=== PATIENT | female | born 2000 | race Caucasian/White ===

== ENCOUNTER 2020-05-16 10:03 | Outpatient (CLI) | payer OTHER, SELFPAY ==
--- NOTE | ~2020-05-16 | XR_ITS ---
EXAMINATION: XR lumbar spine 2-3V DATE: 05/16/2020 10:34 INDICATION: Back pain TECHNIQUE: Anteroposterior and lateral views of the lumbar spine, and cone-down lateral view of the l umbosacral junction were obtained. COMPARISON: None. FINDINGS: There is no fracture, dislocation, or subluxation. The vertebral body heights, alignment, a nd intervertebral disc spaces are normal. The paravertebral soft tissues are unremarkable. There is a moderate volume of colonic stool. IMPRESSION: 1. No acute osseous abnormality. Reviewed, dictated and finalized at location A. OGRAPHERS PRINTER
--- NOTE | ~2020-05-16 | US_ITS ---
EXAMINATION: US retroperitoneal comp DATE: 05/16/2020 10:51 INDICATION: Hematuria TECHNIQUE: Multiple ultrasound grayscale images of the kidneys were obtained. COMPARISON: None. FINDINGS: The right kidney measures 9.8 x 3.8 x 5.0 cm. The left kidney measures 10.8 x 4.8 x 3.7 cm. The kidne ys demonstrate normal echogenicity. There is no hydronephrosis in either kidney. No stones identifie d. The bladder is normal. IMPRESSION: 1. Normal kidneys without hydronephrosis. Reviewed, dictated and finalized at location A. TER BACKER
[2020-05-16 10:18] LABS: Basophils Absolute Auto 0.02 K/mm3 (0.00-0.10); Basophils Percent Auto 0.2 % (0.0-1.0); Eosinophils Percent Auto 2.3 % (1.0-6.0); Hematocrit 44.7 % (35.0-49.0); Hemoglobin 14.6 g/dL (12.0-15.0); Immature Granulocyte Absolute 0.04 K/mm3 (0.00-0.00); Immature Granulocyte Percent A 0.5 % (0.0-0.0); Lymphocytes Absolute Auto 2.64 K/mm3 (1.10-4.50); Lymphocytes Percent Auto 30.4 % (18.0-42.0); Mean Corpuscular HGB Conc 32.7 g/dL (32.0-36.0); Mean Corpuscular Hemoglobin 29.9 pg (27.0-31.0); Mean Corpuscular Volume 91.4 fL (78.0-102.0); Mean Platelet Volume 9.1 fl (9.2-11.8); Monocytes Absolute Auto 0.61 K/mm3 (0.10-0.90); Neutrophils Absolute Auto 5.2 K/mm3 (1.7-7.2); Neutrophils Percent Auto 59.6 % (50.0-70.0); Platelet Count Result 367 K/mm3 (150-420); Red Blood Count 4.89 M/mm3 (4.20-5.40); Red Cell Distribution Width 12.2 % (11.6-14.4); White Blood Count 8.7 K/mm3 (4.8-10.8)
[2020-05-16 10:56] LABS: Alanine Aminotransferase 30 U/L (14-59); Albumin Level 4.4 g/dL (3.4-5.0); Alkaline Phosphatase 83 U/L (50-130); Anion Gap 11 mmol/L (8-16); Aspartate Amino Transferase 15 U/L (15-37); Bilirubin,Total 0.3 mg/dL (0.00-1.00); Blood Urea Nitrogen 14 mg/dL (7-18); Calcium 9.3 mg/dL (8.5-10.1); Carbon Dioxide 26 mmol/L (21-32); Chloride 105 mmol/L (98-108); Estimated Glomerular Filt Rate > 60; Glucose 75 mg/dL (70-99); Osmolality Calculated 293 mOsm/kg (285-295); Sodium 142 mmol/L (136-145); Total Protein 7.6 g/dL (6.4-8.2)
[2020-05-16 10:57] LABS: CRP < 0.2 mg/dL (0.0-0.9)
[2020-05-16 13:59] LABS: Beta HCG Quantitative < 1.00 mIU/mL (0-6)
== END 2020-05-16 10:04 | disposition home or self-care (01) ==
PROVIDERS: PCP Internal Medicine; Visit Provider Internal Medicine
DX: N76.0 Acute vaginitis (principal); R31.9 Hematuria, unspecified; M54.9 Dorsalgia, unspecified
CPT/HCPCS: 36415; 72100; 76770; 80053; 84702; 85025; 86140

== ENCOUNTER 2020-11-13 08:46 | Outpatient (CLI) | payer OTHER, SELFPAY ==
[2020-11-13 10:20] LABS: Beta HCG Quantitative < 2.39 mIU/ML
== END 2020-11-13 08:47 | disposition home or self-care (01) ==
PROVIDERS: PCP Internal Medicine; Visit Provider Obstetrics & Gynecology
DX: N92.6 Irregular menstruation, unspecified (principal)
CPT/HCPCS: 36415; 84702

== ENCOUNTER 2020-12-19 13:49 | Outpatient (CLI) | payer OTHER, SELFPAY ==
[2020-12-22 11:23] LABS: TB Skin Test Erythema 0 mm; TB Skin Test Induration 0 mm (0-10); TB Skin Test Interpretation Negative (Negative); TB Skin Test Site Left Arm
== END 2020-12-19 13:50 | disposition home or self-care (01) ==
LOC: CHSLAB 13:51
PROVIDERS: PCP Internal Medicine; Visit Provider Nurse Practitioner Family
DX: Z00.00 Encounter for general adult medical examination without abnormal findings (principal)
CPT/HCPCS: 36415; 86580

== ENCOUNTER 2021-04-08 12:05 | Outpatient (CLI) | payer OTHER, SELFPAY ==
[2021-04-08 13:50] LABS: SARS-CoV-2 RNA PCR Negative (Negative)
== END 2021-04-08 12:06 | disposition home or self-care (01) ==
LOC: CHSLAB 12:08
PROVIDERS: PCP Internal Medicine; Visit Provider Internal Medicine
DX: Z20.822 Contact with and (suspected) exposure to COVID-19 (principal)
CPT/HCPCS: C9803; U0003; U0005

== ENCOUNTER 2021-06-10 11:46 | Outpatient (CLI) | payer OTHER, SELFPAY ==
[2021-06-10 14:14] LABS: SARS-CoV-2 RNA PCR Negative (Negative)
== END 2021-06-10 11:47 | disposition home or self-care (01) ==
LOC: CHSLAB 11:48
PROVIDERS: PCP Internal Medicine; Visit Provider Internal Medicine
DX: R09.89 Other specified symptoms and signs involving the circulatory and respiratory systems (principal); R05.9 Cough, unspecified; Z20.822 Contact with and (suspected) exposure to COVID-19
CPT/HCPCS: C9803; U0003; U0005

== ENCOUNTER 2021-08-28 16:19 | Emergency (ER) | payer OTHER, SELFPAY ==
--- NOTE | ~2021-08-28 | CT_ITS ---
EXAMINATION: CT abdomen pelvis w con EXAM DATE: 08/28/2021 18:18 INDICATION: Central abd pain with n/v x 1 day. TECHNIQUE: Spiral CT of the abdomen and pelvis was performed following intravenous injection of 100 m L Omnipaque 350. Axial, coronal and sagittal images of the abdomen and pelvis were reviewed. The do se-length product (DLP) for this examination was 290.91 mGy-cm. The exposure was tailored according to patient size (auto mA exposure control), and iterative reconstruction (ASIR) was used as additiona l dose reduction technique. There is no prior study for comparison. FINDINGS: The liver, spleen, adrenal glands and pancreas are unremarkable. Gallbladder is unremarkab le. No biliary obstruction. Portal and splenic veins are patent. Kidneys enhance symmetrically. T here is no hydronephrosis. The uterus is anteverted and morphologically normal. The bladder is un remarkable. There is no retroperitoneal or pelvic lymphadenopathy. The appendix is normal. Several loops of jejunum which are mildly distended with air-fluid levels, b ut no wall thickening or pneumatosis. Consider gastroenteritis. No transition point. There is expect ed amount of colonic stool. No free intraperitoneal gas. The heart is normal in size. There are no pericardial or pleural effusions. The lung bases are unremarkable. There are no osteoblastic or osteolytic lesions identified. IMPRESSION: Mildly dilated jejunum, consider gastroenteritis given history provided. Reviewed, dictated and finalized at location G. COVERER IMPRESSION: Mildly dilated jejunum, consider gastroenteritis given history prov ided.
[2021-08-28 16:45] VITALS: BP 132/85; PULSE 99; RESP 20; TEMP 36.9; O2SAT 99
[2021-08-28] MEDS: SODIUM CHLORIDE 0.9% IV 1,000 ML 999 ML IV CONT (16:50)
--- NOTE | 2021-08-28 16:56 | ED.NAVMDI ---
HPI - Nausea/Vomiting/Diarrhea General Chief complaint: Nausea/Vomiting/Diarrhea Stated complaint: stomach pain, vomiting Source: patient Mode of arrival: ambulatory Limitations: no limitations History of Present Illness HPI Narrative: this is a 21-year-old female with no past medical history presents with some episodes of nausea and vomiting with abdominal discomfort and pain she rates it about a 7/10 with no dysuria no hematuria no fever chills nausea vomiting abdominal pain started about 2 to 3 hours ago. There is no shortness of breath no fever chills no chest pain or pressure no flank pain patient is not vaccinated for COVID. MD elicited complaint: nausea, vomiting and abdominal pain Onset (ago): hour(s) Description of vomiting: watery Associated nausea: Yes Associated abdominal pain: Yes Location of pain: diffuse Radiation: periumbilical Pain consistency: constant Severity: moderate Pain scale (0-10): 7 Quality: aching Related Data Home Medications Medication Instructions Recorded Confirmed drospirenone-ethinyl estradiol 1 tablet PO DAILY 08/28/21 08/28/21 Allergies Allergy/AdvReac Type Severity Reaction Status Date / Time No Known Allergies Allergy Verified 08/28/21 17:19 Review of Systems Review of Systems: All systems reviewed & are unremarkable except as noted in HPI and below PMFSH Past Medical History Medical History Patient denies medical problems Exam Const: General: no acute distress and alert Orientation/consciousness: patient oriented x3 HENMT: Head: normal to inspection Eyes: Pupils: Equal, round and reactive pupils present EOM: EOMs intact bilaterally Direct Ophthalmoscopy: no photophobia Neck: Neck: normal visual inspection, no lymphadenopathy and no meningeal signs Chest: Chest palpation & inspection: normal inspection of the chest Resp: Effort & Inspection: normal respiratory effort Auscultation: clear to auscultation bilaterally Cardio: Rate: regular rate Rhythm: regular rhythm GI: GI Palp: Yes Soft to palpation and Yes Tenderness to palpation present (GI) ( diffuse tenderness localizing to the periumbilical area) Percussion: Yes normal to percussion : General: Yes no CVA tenderness Back/Spine/Pelvis: Back: no CVA tenderness Skin: General skin exam: normal color Rashes: no rashes Neuro: General: patient oriented x3 and moves all extremities Extrem: General: normal to inspection and no pedal edema Psych: Mental Status: mental status grossly normal Affect: normal affect Attitude: cooperative Course Course Emergency Course: blood work and scan performed and reviewed with patient, was given IV Zofran started on IV fluids and IV Toradol. Labs patient is well as CT scan of the abdomen [place] [id number] will start antibiotic and will send the head Vital Signs Vital signs: Vital Signs Temperature 36.9 C 08/28/21 16:45 Pulse Rate 99 08/28/21 16:45 Respiratory Rate 20 08/28/21 16:45 Blood Pressure 132/85 08/28/21 16:45 Pulse Oximetry 99 08/28/21 16:45 Temperature 36.9 C 08/28/21 16:45 Pulse Rate 99 08/28/21 16:45 Respiratory Rate 20 08/28/21 16:45 Blood Pressure 132/85 08/28/21 16:45 Pulse Oximetry 99 08/28/21 16:45 MDM - Nausea/Vomiting/Diarrhea Lab Data Result diagrams: 08/28/21 17:05 08/28/21 17:05 Labs: Lab Results 08/28/21 08/28/21 08/28/21 Range/Units 17:05 17:05 17:05 WBC 20.1 H* (4.8-10.8) K/mm3 RBC 4.75 (4.20-5.40) M/mm3 Hgb 14.4 (12.0-15.0) g/dL Hct 42.9 (35.0-49.0) % MCV 90.3 (78.0-102.0) fL MCH 30.3 (27.0-31.0) pg MCHC 33.6 (32.0-36.0) g/dL RDW 12.7 (11.6-14.4) % Plt Count 369 (150-420) K/mm3 MPV 9.2 (9.2-11.8) fl Immature Gran % (Auto) Not Reportable Neut % (Auto) Not Reportable Lymph % (Auto) Not Reportable [place] % (Auto
[2021-08-28] MEDS: ONDANSETRON INJ 4 MG/2 ML VIAL IV PUSH (17:00)
[2021-08-28 17:14] LABS: Hematocrit 42.9 % (35.0-49.0); Hemoglobin 14.4 g/dL (12.0-15.0); Mean Corpuscular HGB Conc 33.6 g/dL (32.0-36.0); Mean Corpuscular Hemoglobin 30.3 pg (27.0-31.0); Mean Corpuscular Volume 90.3 fL (78.0-102.0); Mean Platelet Volume 9.2 fl (9.2-11.8); Platelet Count Result 369 K/mm3 (150-420); Red Blood Count 4.75 M/mm3 (4.20-5.40); Red Cell Distribution Width 12.7 % (11.6-14.4)
[2021-08-28 17:20] LABS: White Blood Count 20.1 K/mm3 (4.8-10.8)
[2021-08-28] MEDS: KETOROLAC 30 MG/ML VIAL (*BKC) IV PUSH (17:24)
[2021-08-28 17:26] LABS: SARS-CoV-2 Ag Negative (Negative)
[2021-08-28 17:27] LABS: Partial Thromboplastin Time 27.7 SEC (23.90-30.70); Prothrombin Time 10.3 Seconds (9.50-12.10)
[2021-08-28 17:28] LABS: Alanine Aminotransferase 23 U/L (14-59); Albumin Level 3.4 g/dL (3.4-5.0); Alkaline Phosphatase 75 U/L (46-116); Anion Gap 13 mmol/L (8-16); Aspartate Amino Transferase 15 U/L (15-37); Bilirubin,Total 0.3 mg/dL (0.00-1.00); Blood Urea Nitrogen 12 mg/dL (7-18); Calcium 8.5 mg/dL (8.5-10.1); Carbon Dioxide 23 mmol/L (21-32); Chloride 103 mmol/L (98-108); Estimated Glomerular Filt Rate > 60; Glucose 88 mg/dL (70-99); Lipase 68 U/L (73-393); Osmolality Calculated 286 mOsm/kg (285-295); Potassium 3.5 mmol/L (3.5-5.1); Sodium 139 mmol/L (136-145); Total Protein 7.3 g/dL (6.4-8.2)
[2021-08-28 17:31] LABS: Lactic Acid Reflex 1.1 mmol/L (0.4-2.0)
[2021-08-28 17:35] LABS: Platelet Estimate Adequate (Adequate)
[2021-08-28 17:36] LABS: Band Neutrophils Percent 0 % (0-6); Basophils Percent Manual 0 % (0-1); Eosinophils Percent Manual 0 % (1-6); Lymphocytes Percent Manual 7 % (18-44); Monocytes Percent Manual 4 % (3-9); Neutrophils Absolute Manual 17.88 K/mm3 (1.7-7.2); Neutrophils Percent Manual 89 % (46-73); Total Cells Counted 100
[2021-08-28 17:54] LABS: Add Urine Microscopic? YES; Appearance Urine Clear (Clear); Bilirubin Urine Negative (Negative); Blood Urine Negative (Negative); Color Urine Light Yellow (Yellow); Glucose Urine UA Negative (Negative); Ketones Urine 2+ (Negative); Leukocyte Esterase Ur Negative (Negative); Nitrate Urine Negative (Negative); Protein Urine Negative (Negative); Specific Grav Ur >= 1.030 (1.010-1.020); Urobilinogen Urine 0.2 mg/dL (0.2-1.0); pH Urine 5.5 (5.0-8.0)
[2021-08-28 17:59] LABS: Bacteria Urine 1+ /hpf; Mucus Urine Rare /lpf; Pregnancy On Board Control Positive; RBC Urine 0-2 /hpf (0-2); Squamous Epithelial Cell Urine Few /hpf (Few); Urine Pregnancy Test Negative; WBC Urine 0-3 /hpf (0-3)
[2021-08-28 18:30] VITALS: BP 123/74; PULSE 81; RESP 20; TEMP 37.1; O2SAT 98
== END 2021-08-28 18:49 | disposition home or self-care (01) ==
PROVIDERS: Emergency Provider Emergency Medicine; PCP Internal Medicine
DX: K52.9 Noninfective gastroenteritis and colitis, unspecified (principal); Z20.822 Contact with and (suspected) exposure to COVID-19
CPT/HCPCS: 36415; 74177; 80053; 81001; 81025; 83605; 83690; 85025; 85610; 85730; 87426; 96361; 96374; 96375; 99284; C9803; J1885; J2405; J7030; Q9967

== ENCOUNTER 2021-12-05 16:16 | Outpatient (CLI) | payer OTHER, SELFPAY ==
[2021-12-05 16:55] LABS: Basophils Absolute Auto 0.02 K/mm3 (0.00-0.10); Basophils Percent Auto 0.2 % (0.0-1.0); Eosinophils Absolute Auto 0.14 K/mm3 (0.02-0.50); Eosinophils Percent Auto 1.6 % (1.0-6.0); Hematocrit 41.2 % (35.0-49.0); Hemoglobin 13.8 g/dL (12.0-15.0); Immature Granulocyte Absolute 0.03 K/mm3 (0.00-0.00); Immature Granulocyte Percent A 0.4 % (0.0-0.0); Lymphocytes Absolute Auto 2.91 K/mm3 (1.10-4.50); Lymphocytes Percent Auto 34.3 % (18.0-42.0); Mean Corpuscular HGB Conc 33.5 g/dL (32.0-36.0); Mean Corpuscular Hemoglobin 30.3 pg (27.0-31.0); Mean Corpuscular Volume 90.4 fL (78.0-102.0); Mean Platelet Volume 9.4 fl (9.2-11.8); Monocytes Absolute Auto 0.58 K/mm3 (0.10-0.90); Monocytes Percent Auto 6.8 % (2.0-11.0); Neutrophils Absolute Auto 4.8 K/mm3 (1.7-7.2); Neutrophils Percent Auto 56.7 % (50.0-70.0); Platelet Count Result 377 K/mm3 (150-420); Red Blood Count 4.56 M/mm3 (4.20-5.40); Red Cell Distribution Width 12.4 % (11.6-14.4); White Blood Count 8.5 K/mm3 (4.8-10.8)
[2021-12-05 17:00] LABS: SPREG INTERNAL CONTROL Positive; Serum Qual hCG Negative
[2021-12-05 17:01] LABS: Alanine Aminotransferase 24 U/L (14-59); Albumin Level 3.5 g/dL (3.4-5.0); Alkaline Phosphatase 77 U/L (46-116); Amylase 24 U/L (25-115); Anion Gap 5 mmol/L (8-16); Aspartate Amino Transferase 25 U/L (15-37); Bilirubin,Total 0.3 mg/dL (0.00-1.00); Blood Urea Nitrogen 14 mg/dL (7-18); Calcium 8.8 mg/dL (8.5-10.1); Carbon Dioxide 27 mmol/L (21-32); Chloride 105 mmol/L (98-108); Estimated Glomerular Filt Rate > 60; Glucose 122 mg/dL (70-99); Lipase 96 U/L (73-393); Osmolality Calculated 285 mOsm/kg (285-295); Potassium 3.9 mmol/L (3.5-5.1); Sodium 137 mmol/L (136-145); Total Protein 7.4 g/dL (6.4-8.2)
[2021-12-05 17:03] LABS: Amphetamine Screen Urine Negative (Negative); Barbiturate Screen Urine Negative (Negative); Benzodiazepines Screen Urine Negative (Negative); Cannabinoid Screen Urine Negative (Negative); Cocaine Screen Urine Negative (Negative); Methadone Screen Urine Negative (Negative); Opiate Screen Urine Negative (Negative); Phencyclidine Screen Urine Negative (Negative)
== END 2021-12-05 16:17 | disposition home or self-care (01) ==
LOC: CHSLAB 16:18
PROVIDERS: PCP Internal Medicine; Visit Provider Internal Medicine
DX: R10.9 Unspecified abdominal pain (principal); R11.0 Nausea
CPT/HCPCS: 36415; 80053; 80307; 82150; 83690; 84703; 85025

== ENCOUNTER 2022-05-27 14:37 | Outpatient (CLI) | payer OTHER, SELFPAY ==
[2022-05-27 16:11] LABS: HIV 1/2 Ab P24 Ag Result Negative (Negative)
[2022-05-27 18:12] LABS: Hepatitis B Surface Antigen Negative (Negative)
[2022-05-27 18:18] LABS: HAV RESULT Negative (Negative); Hepatitis B Core IgM Result Negative (Negative)
[2022-05-27 18:29] LABS: Hepatitis C Virus Antibody Negative (Negative)
[2022-05-28 13:35] LABS: Rapid Plasma Reagin Non-Reactive (NonReactive)
== END 2022-05-27 14:38 | disposition home or self-care (01) ==
LOC: ANHLAB 14:39
PROVIDERS: PCP Internal Medicine; Visit Provider Student in an Organized Health Care Education/Training Program
DX: Z20.2 Contact with and (suspected) exposure to infections with a predominantly sexual mode of transmission (principal)
CPT/HCPCS: 36415; 80074; 86592; 86703; G0432

== ENCOUNTER 2022-08-19 11:45 | Outpatient (CLI) | payer OTHER, SELFPAY ==
[2022-08-19 13:36] LABS: HIV 1/2 Ab P24 Ag Result Negative (Negative)
[2022-08-19 13:47] LABS: Hepatitis B Surface Antigen Negative (Negative)
[2022-08-19 13:52] LABS: HAV RESULT Negative (Negative)
[2022-08-19 14:04] LABS: Hepatitis C Virus Antibody Negative (Negative)
[2022-08-20 16:03] LABS: Rapid Plasma Reagin Non-Reactive (NonReactive)
== END 2022-08-19 11:46 | disposition home or self-care (01) ==
LOC: ANHLAB 11:46
PROVIDERS: PCP Internal Medicine; Visit Provider Student in an Organized Health Care Education/Training Program
DX: A64 Unspecified sexually transmitted disease (principal)
CPT/HCPCS: 36415; 86592; 86703; 86709; 86803; 87340; G0432

== ENCOUNTER 2022-09-23 15:59 | Outpatient (CLI) | payer OTHER, SELFPAY ==
[2022-09-23 16:59] LABS: Beta HCG Quantitative < 2.39 mIU/ML
== END 2022-09-23 16:00 | disposition home or self-care (01) ==
LOC: ANHLAB 16:00
PROVIDERS: PCP Internal Medicine; Visit Provider Student in an Organized Health Care Education/Training Program
DX: N92.6 Irregular menstruation, unspecified (principal)
CPT/HCPCS: 36415; 84702

== ENCOUNTER 2023-09-29 19:57 | Emergency (ER) | payer OTHER, SELFPAY ==
--- NOTE | ~2023-09-29 | US_ITS ---
EXAMINATION: US OB <=14 wk fetus w TV DATE: 09/29/2023 22:25 INDICATION: Vaginal bleeding during first trimester TECHNIQUE: Real-time pelvic transabdominal and transvaginal ultrasound was performed. COMPARISON: None. FINDINGS: The uterus measures 6.6 x 3.3 x 4.1 cm. The endometrial thickness measures 10 mm. No intrau terine gestational sac is identified. The right ovary measures 2.4 x 2.4 x 3 cm. The left ovary measu res 2 x 1.5 x 2 cm. There is normal vascular flow in the ovaries. There is no free fluid in the pelvi s. IMPRESSION: 1. of unknown location. Although no intrauterine gestational sac is seen, this may be due t o early gestation. If the patient is clinically stable, recommend followup with serial beta-hCG and u ltrasound. Reviewed, dictated and finalized at location F. IMPRESSION: 1. of unknown location. Although no intrauterine gestational sac is s een, this may be due to early gestation. If the patient is clinically stable, r ecommend followup with serial beta-hCG and ultrasound.
[2023-09-29 20:21] VITALS: BP 112/76; PULSE 71; RESP 14; TEMP 36.2; O2SAT 100
[2023-09-29 20:36] LABS: Basophils Percent Auto 0.2 % (0.2-1.2); Eosinophils Absolute Auto 0.2 K/mm3 (0-0.3); Eosinophils Percent Auto 1.6 % (0-4.4); Hematocrit 45.3 % (37.0-47.0); Hemoglobin 15.1 g/dL (12.0-15.0); Immature Granulocyte Absolute 0.06 K/mm3 (0.00-0.031); Immature Granulocyte Percent A 0.5 % (0-0.5); Lymphocytes Absolute Auto 3.13 K/mm3 (0.9-3.2); Lymphocytes Percent Auto 23.9 % (18.3-44.2); Mean Corpuscular HGB Conc 33.3 g/dl (32-36); Mean Corpuscular Hemoglobin 30.1 pg (26-34); Mean Corpuscular Volume 90.4 fl (80-100); Mean Platelet Volume 9.1 fl (7.4-10.4); Monocytes Absolute Auto 0.6 K/mm3 (0.1-0.6); Monocytes Percent Auto 4.9 % (2.6-8.5); Neutrophils Absolute Auto 9.1 K/mm3 (1.3-6.7); Neutrophils Percent Auto 68.9 % (45.5-73.1); Platelet Count Result 394 k/mm3 (150-375); Red Blood Count 5.01 M/mm3 (4.2-5.4); Red Cell Distribution Width 12.3 % (11.5-14.5); White Blood Count 13.1 K/mm3 (4.5-10.0)
[2023-09-29 20:48] LABS: INR 0.9; Partial Thromboplastin Time 26.3 Seconds (22.3-36.8); Prothrombin Time 12.8 Seconds (11.1-14.7)
[2023-09-29 20:50] LABS: Alanine Aminotransferase 16 U/L (6-35); Albumin Level 4.7 g/dL (3.5-5.1); Alkaline Phosphatase 67 U/L (38-126); Anion Gap 6 mmol/L (8-16); Aspartate Amino Transferase 24 U/L (14-36); Bilirubin,Total 0.3 mg/dL (0.2-1.3); Blood Urea Nitrogen 15 mg/dL (7-17); Calcium 9.7 mg/dL (8.4-10.2); Carbon Dioxide 25 mmol/L (22-30); Chloride 106 mmol/L (98-107); Estimated CRCL calculation 97 ml/min; Estimated Glomerular Filt Rate > 60; Glucose 93 mg/dL (65-110); Sodium 137 mmol/L (137-145)
[2023-09-29 22:00] VITALS: BP 110/78; PULSE 72; RESP 15; O2SAT 99
--- NOTE | 2023-09-29 23:04 | ED.FEMALEGU ---
HPI - Female Genitourinary General Chief complaint: Vaginal Bleeding Stated complaint: , vaginal bleeding Time Seen by Provider: 09/29/23 20:55 History of Present Illness HPI Narrative: 23-year-old female, , LMP 08/21/2023 presents to the emergency department for vaginal bleeding in . Patient states she believes she is about 6 weeks and began bleeding around 1800 tonight. States she has not had to change her pad or tampon since. She is reporting some lower abdominal cramping. Denies nausea or vomiting, dysuria or hematuria, fever, vaginal discharge or concern for STDs. States she was tested for STDs 2 weeks ago by her PCP which were negative and does not desire testing today. Related Data Allergies Allergy/AdvReac Type Severity Reaction Status Date / Time No Known Allergies Allergy Verified 09/29/23 21:03 Review of Systems Review of Systems: CONSTITUTIONAL: Denies fever, chills, or sweats. EYES: Denies visual changes, redness, or discharge. ENT: Denies rhinorrhea, congestion, sore throat, or otalgia. CARDIOVASCULAR: Denies chest pain, palpitations, or edema. RESPIRATORY: Denies cough or dyspnea. GASTROINTESTINAL: See HPI GENITOURINARY: Denies dysuria or hematuria. SKIN: Denies rash or itching. MUSCULOSKELETAL: Denies back pain, joint pain, or myalgia. NEUROLOGIC: Denies headache, numbness, or weakness. PSYCHIATRIC: Denies anxiety or depression. FORMERLY [facility] Past Medical History Medical History Encounter for IUD insertion 11/14/20 Mirena insertion Encounter for IUD removal 03/13/21 Mirena removal Menstrual periods, abnormal Nexplanon insertion (03/12/20) Nexplanon removal (06/26/20) Patient denies medical problems Sexually transmissible disease Social History Social History Smoking status: Current every day smoker Tobacco type: e-cigarettes/vaping Alcohol intake: current Alcohol use details: occasional Substance use: never Living arrangements: with family Occupation/Education: occupation Additional occupation/education comments: [employer] Gender identity (if verbalized by the patient): Female Sexual Orientation (if Verbalized by the Patient): Straight or Heterosexual Exam Narrative: GENERAL: Well-appearing, well-nourished, and in no acute distress. HEAD: Normocephalic, atraumatic. EYES: PERRLA and EOMI. ENT: Nares clear, no rhinorrhea or epistaxis. Mucous membranes moist. NECK: Supple. CHEST: Clear to auscultation. No respiratory distress. HEART: Regular rate and rhythm. No murmur heard. Normal peripheral pulses. ABDOMEN: Soft, nontender, nondistended, normal active bowel sounds. No guarding, rebound or rigidity. No CVA tenderness. : Moderate amount of blood in the cervical canal with no clots or tissue. Cervical os is closed. No discharge, cervical motion tenderness, adnexal masses or tenderness. EXTREMITIES: Normal range of motion. No edema. SKIN: Warm, dry, no rash. NEURO: No focal deficits. Alert and oriented x3 Course Vital Signs Vital signs: Vital Signs Temperature 97.2 F L 09/29/23 20:21 Pulse Rate 71 09/29/23 20:21 Respiratory Rate 14 09/29/23 20:21 Blood Pressure 112/76 09/29/23 20:21 Pulse Oximetry 100 09/29/23 20:21 Oxygen Delivery Room Air 09/29/23 20:21 Temperature 97.2 F L 09/29/23 20:21 Pulse Rate 71 09/29/23 20:21 Respiratory Rate 14 09/29/23 20:21 Blood Pressure 112/76 09/29/23 20:21 Pulse Oximetry 100 09/29/23 20:21 Oxygen Delivery Room Air 09/29/23 20:21 MDM - Female Genitourinary MDM Narrative Medical decision making narrative: 23-year-old female, , who believes she is 6 weeks presents to the emergency department for vaginal bleeding that started today. See HPI for further history. Vitals stable. Patient is well-appearing and nonto
== END 2023-09-29 23:18 | disposition home or self-care (01) ==
PROVIDERS: Emergency Medicine; Emergency Provider Physician Assistant; PCP Internal Medicine
DX: O20.9 Hemorrhage in early pregnancy, unspecified (principal); F17.290 Nicotine dependence, other tobacco product, uncomplicated; Z3A.01 Less than 8 weeks gestation of pregnancy
CPT/HCPCS: 36415; 76801; 76817; 80053; 84702; 85025; 85461; 85610; 85730; 86850; 86900; 86901; 99284

== ENCOUNTER 2024-03-04 11:45 | Observation (INO) | payer OTHER, SELFPAY ==
[2024-03-04 13:09] VITALS: BP 114/70; PULSE 65
[2024-03-04 13:22] LABS: Add Urine Microscopic? YES; Appearance Urine Cloudy (Clear); Bacteria Urine 1+ /hpf; Bilirubin Urine Negative (Negative); Blood Urine 3+ (Negative); Calcium Oxalate Crystals Urine Present /hpf; Color Urine Yellow (Yellow); Glucose Urine UA Negative (Negative); Ketones Urine Trace mg/dL (Negative); Leukocyte Esterase Ur 1+ LEU/UL (Negative); Nitrate Urine Negative (Negative); Non Pathogenic Casts 0-2; Protein Urine Trace mg/dL (Negative); RBC Urine >100 /hpf (0-2); Specific Grav Ur 1.022 (1.001-1.035); Squamous Epithelial Cell Urine Occasional /hpf (Few); WBC Urine 51-100 /hpf (0-3)
[2024-03-04] MEDS: cefTRIAXone 1 GM VIAL 0.5 GM IM (13:59)
[2024-03-04] MEDS: LIDOCAINE HCL 1% LOCAL INJ 10 ML VIAL INFILTRATE (14:02)
--- NOTE | 2024-03-04 15:06 | PC.NURSE ---
1350--No irritability noted in past 90 min of tracing. Pt states she no longer feels cramping.
--- NOTE | 2024-03-04 15:23 | PM.OBTRLD ---
OB - Triage/Final Diagnosis Visit Information Date of evaluation: 03/04/24 Reason for evaluation: other (Urinary tract infection) Comments/Additional reasons for admission: I have assessed the risk for this patient, Estephania Dan, and determined that she would benefit from observation care. Evaluation Laboratory results: Laboratory Tests 03/04/24 12:09 Urine Color Yellow Urine Appearance Cloudy H Urine pH 6.0 Ur Specific [place] 1.022 Urine Protein Trace Urine Glucose (UA) Negative Urine Ketones Trace H Ur Blood (Man) 3+ H Urine Nitrate Negative Urine Bilirubin Negative Urine Urobilinogen 1.0 Leukocyte Esterase Rfl 1+ H Urine RBC >100 H Urine WBC 51-100 H Ur Squamous Epith Cells Occasional Calcium Oxalate Crystal Present Urine Bacteria 1+ H Urine Casts 0-2 Vital signs: Vital Signs - 24 hr 03/04/24 13:09 Pulse Rate 65 Blood Pressure 114/70
== END 2024-03-04 14:10 | disposition home or self-care (01) ==
PROVIDERS: Admitting Provider Obstetrics & Gynecology; PCP Internal Medicine; Visit Provider Obstetrics & Gynecology
DX: O23.40 Unspecified infection of urinary tract in pregnancy, unspecified trimester (principal); N39.0 Urinary tract infection, site not specified
CPT/HCPCS: 81001; 87086; 96372; G0378; G0379; J0696

== ENCOUNTER 2024-06-01 08:49 | Observation (INO) | payer OTHER, SELFPAY ==
[2024-06-01 09:07] VITALS: BP 126/70; PULSE 72
[2024-06-01 09:16] VITALS: BP 77/54; PULSE 81
--- NOTE | 2024-06-01 09:25 | OBADM ---
This patient, Estephania Dan, admitted to the OB room OB Post 116 for observation. Patient/family oriented to hospital policies and general routines including ID bracelet, bed and alarms, visiting hours, pain management, procedures, bathroom and other care routines, personal items, smoking policy, room service/diet, and visiting hours. Patient/Family are encouraged to report perceived risks to care and to ask questions if they do not understand what they are told or what they should do.
[2024-06-01 09:33] VITALS: BMI 30.4
[2024-06-01 10:29] LABS: Add Urine Microscopic? YES; Appearance Urine Cloudy (Clear); Bacteria Urine 4+ /hpf; Bilirubin Urine Negative (Negative); Blood Urine 1+ (Negative); Color Urine Dark Yellow (Yellow); Glucose Urine UA Negative (Negative); Ketones Urine Trace mg/dL (Negative); Leukocyte Esterase Ur Trace LEU/UL (Negative); Need Manual Microscopic Reviewed; Nitrate Urine Positive (Negative); Non Pathogenic Casts 0-2; Protein Urine 3+ mg/dL (Negative); RBC Urine 21-50 /hpf (0-2); Specific Grav Ur 1.017 (1.001-1.035); Squamous Epithelial Cell Urine Occasional /hpf (Few); WBC Urine 21-50 /hpf (0-3); pH Urine 6.5 (5.0-9.0)
[2024-06-01 10:32] LABS: Amorphous Sediment Urine Few
[2024-06-01] MEDS: cefTRIAXone 250 MG VIAL IM (11:10)
[2024-06-01] MEDS: LIDOCAINE HCL 1% LOCAL INJ 10 ML VIAL XX (11:10)
--- NOTE | 2024-06-02 08:18 | PM.OBTRLD ---
OB - Triage/Final Diagnosis Visit Information Date of evaluation: 06/01/24 Reason for evaluation: decreased movement and other (uti) Comments/Additional reasons for admission: I have assessed the risk for this patient, Estephania Dan, and determined that she would benefit from observation care. Evaluation Laboratory results: Laboratory Tests 06/01/24 09:22 Urine Color Dark yellow Urine Appearance Cloudy H Urine pH 6.5 Ur Specific [place] 1.017 Urine Protein 3+ H Urine Glucose (UA) Negative Urine Ketones Trace H Ur Blood (Man) 1+ H Urine Nitrate Positive Urine Bilirubin Negative Urine Urobilinogen 1.0 Ur Leukocyte Esterase Trace H Add Ur Microanalysis Reviewed Urine RBC 21-50 H Urine WBC 21-50 H Ur Squamous Epith Cells Occasional Amorphous Sediment Few H Urine Bacteria 4+ H Urine Casts 0-2 Vital signs: Vital Signs - 24 hr 06/01/24 09:07 06/01/24 09:16 Pulse Rate 72 81 Blood Pressure 126/70 77/54 L
== END 2024-06-01 11:18 | disposition home or self-care (01) ==
PROVIDERS: Admitting Provider Obstetrics & Gynecology; PCP Internal Medicine; Visit Provider Obstetrics & Gynecology
DX: O36.8130 Decreased fetal movements, third trimester, not applicable or unspecified (principal); O23.43 Unspecified infection of urinary tract in pregnancy, third trimester; N39.0 Urinary tract infection, site not specified; Z3A.35 35 weeks gestation of pregnancy
CPT/HCPCS: 81001; 87086; 96372; G0378; G0379; J0696; J2003

== ENCOUNTER 2024-06-27 20:24 | Outpatient (CLI) | payer OTHER, SELFPAY | END 2024-06-27 21:00 | disposition home or self-care (01) | LOC: ANHOBOP 20:49 | PROVIDERS: PCP Internal Medicine; Visit Provider Obstetrics & Gynecology | DX: Z34.90 Encounter for supervision of normal pregnancy, unspecified, unspecified trimester (principal); Z3A.00 Weeks of gestation of pregnancy not specified | CPT/HCPCS: 59025 ==

== ENCOUNTER 2024-07-09 15:46 | Inpatient (IN) | payer OTHER, SELFPAY ==
[2024-07-09] VITALS (74 sets, daily range): BP systolic 80–165; BP diastolic 31–107; PULSE 70–133; RESP 16; TEMP 36.2–36.6; O2SAT 93–100; BMI 33.2
--- NOTE | 2024-07-09 16:29 | LDADM ---
This patient, Estephania Dan, was admitted to Labor/Delivery/Recovery 103 on 07/09/24 at 15:46. Plans for labor, pain management and were discussed with patient. Patient/family oriented to hospital policies and general routines including ID bracelet, bed and alarms, visiting hours, pain management, procedures, bathroom and other care routines, personal items, smoking policy, room service/diet and guest tray routines, security routines, and visiting hours. Patient/Family are encouraged to report perceived risks to care and to ask questions if they do not understand what they are told or what they should do. See OBIX for further documentation.
[2024-07-09 16:36] LABS: Basophils Absolute Auto 0.1 K/mm3 (0.0-0.1); Basophils Percent Auto 0.3 % (0.2-1.2); Eosinophils Absolute Auto 0.2 K/mm3 (0-0.3); Eosinophils Percent Auto 1.2 % (0-4.4); Hematocrit 33.8 % (37.0-47.0); Hemoglobin 10.7 g/dL (12.0-15.0); Immature Granulocyte Absolute 0.24 K/mm3 (0.00-0.031); Immature Granulocyte Percent A 1.5 % (0-0.5); Lymphocytes Percent Auto 17.2 % (18.3-44.2); Mean Corpuscular HGB Conc 31.7 g/dl (32-36); Mean Corpuscular Hemoglobin 25.7 pg (26-34); Mean Corpuscular Volume 81.3 fl (80-100); Mean Platelet Volume 10.1 fl (7.4-10.4); Monocytes Absolute Auto 0.8 K/mm3 (0.1-0.6); Monocytes Percent Auto 5.1 % (2.6-8.5); Neutrophils Absolute Auto 12.2 K/mm3 (1.3-6.7); Neutrophils Percent Auto 74.7 % (45.5-73.1); Platelet Count Result 283 k/mm3 (150-375); Red Blood Count 4.16 M/mm3 (4.2-5.4); Red Cell Distribution Width 15.8 % (11.5-14.5); White Blood Count 16.3 K/mm3 (4.5-10.0)
[2024-07-09 17:02] LABS: Rapid Plasma Reagin Non-Reactive (NonReactive)
[2024-07-09 17:27] LABS: HIV 1/2 Ab P24 Ag Result Negative (Negative)
[2024-07-09] MEDS: LACTATED RINGERS 1,000 ML 125 ML IV CONT ×2 (17:48→20:56)
[2024-07-09] MEDS: OXYTOCIN 30 UNITS/NS 500 ML 30 UNITS/500 ML BAG 6 UNITS IV CONT (17:48)
--- NOTE | 2024-07-09 20:06 | WPDANESEPP ---
Anes - Eval Pre Procedure Procedure: Labor Epidural Date/Time: 07/09/24 20:06 Surgeon: Matthew Preop Diagnosis: Labor Pain Pre Op Diagnosis: IOL Patient Data Age: 24 Gender: F Height: 1.6 m Weight: 85 kg Last Vital Signs Temp 36.6 C 07/09/24 18:00 Pulse 87 07/09/24 20:01 Resp 16 07/09/24 17:00 BP 80/61 L 07/09/24 20:01 O2 Del Method Room Air 07/09/24 16:28 Allergies Allergy/AdvReac Type Severity Reaction Status Date / Time No Known Allergies Allergy Verified 06/29/24 14:33 Home Medications ?Medication ?Instructions ?Recorded ?Confirmed ?Type vit no.95-ferrous 1 tablet PO DAILY 03/04/24 07/09/24 History fumarate 28 mg-folic acid 800 mcg tablet () Laboratory Tests 07/09/24 16:01 WBC 16.3 H K/mm3 (4.5-10.0) RBC 4.16 L M/mm3 (4.2-5.4) Hgb 10.7 L D g/dL (12.0-15.0) Hct 33.8 L % (37.0-47.0) MCV 81.3 fl (80-100) MCH 25.7 L pg (26-34) MCHC 31.7 L g/dl (32-36) RDW 15.8 H % (11.5-14.5) Plt Count 283 k/mm3 (150-375) MPV 10.1 fl (7.4-10.4) Immature Gran % (Auto) 1.5 H % (0-0.5) Neut % (Auto) 74.7 H % (45.5-73.1) Lymph % (Auto) 17.2 L % (18.3-44.2) [place] % (Auto) 5.1 % (2.6-8.5) Eos % (Auto) 1.2 % (0-4.4) Baso % (Auto) 0.3 % (0.2-1.2) Lymph # (Auto) 2.80 K/mm3 (0.9-3.2) [place] # (Auto) 0.8 H K/mm3 (0.1-0.6) Eos # (Auto) 0.2 K/mm3 (0-0.3) Baso # (Auto) 0.1 K/mm3 (0.0-0.1) Abs Immat Gran (auto) 0.24 H K/mm3 (0.00-0.031) Absolute Neuts (auto) 12.2 H K/mm3 (1.3-6.7) Absolute Nucleated RBC 0.000 K/mm3 (0.0-0.012) Nucleated RBC % 0.0 % (0.0-0.2) RPR Non-reactive (NonReactive) HIV 1&2 Ab/P24 Ag 4thGn Negative (Negative) Blood Type A Positive Antibody Screen Negative Patient hx anesthesia problems: none Family hx anesthesia problems: none Results Review: All pre-operative results and documents have been reviewed as part of the pre-operative evaluation. FOR[facility] Past Medical History Medical History Menstrual periods, abnormal Sexually transmissible disease Encounter for IUD removal 03/13/21 Mirena removal Encounter for IUD insertion 11/14/20 Mirena insertion Nexplanon removal (06/26/20) Nexplanon insertion (03/12/20) Patient denies medical problems Family History Family History Other No pertinent family history Social History Social History Smoking status: Never smoker Tobacco type: e-cigarettes/vaping Alcohol intake: current Alcohol use details: occasional Substance use: never Do You Feel Safe in your Home?: Yes Lack of Transportation: No Lack of Food: Never True Current Housing: I Have Housing Concerned About Future Housing: No Difficulty Paying Gas/Electric Bills: No Difficulty Paying for Meds: No Currently Unemployed: No Education: Trade/Vocational Certificate Difficulty w/ Childcare or Family Care: No Living arrangements: with family Occupation/Education: occupation Additional occupation/education comments: [employer] Gender identity (if verbalized by the patient): Female Sexual Orientation (if Verbalized by the Patient): Straight or Heterosexual Spiritual care concerns: No Exam Day of Procedure 07/09/24 20:06 Patient weight: normal Heart: regular rate and rhythm Lungs: normal air movement Airway: Mallampati scale class II Neurological: alert and oriented
[2024-07-10] VITALS (226 sets, daily range): BP systolic 98–158; BP diastolic 44–96; PULSE 61–153; RESP 18; TEMP 36.6–37.2; O2SAT 96–100
[2024-07-10] MEDS: LACTATED RINGERS 1,000 ML 125 ML IV CONT ×2 (02:03→08:15)
[2024-07-10] MEDS: ONDANSETRON INJ 4 MG/2 ML VIAL IV PUSH (02:05)
--- NOTE | 2024-07-10 04:53 | PM.IMHP ---
H&P: HPI History of Present Illness Date/Time: 07/10/24 04:53 Chief Complaint: Term for induction Narrative: this is a 24-year-old 2 para 0010 whose last menstrual period was 09/29/2023 EDC is 07/10/2024 presents at 39 and weeks gestation for induction of labor she is negative for group B strep has favorable cervix risks and benefits reviewed Review of Systems Review of Systems: CONSTITUTIONAL: Denies fever, chills, or sweats. EYES: Denies visual changes, redness, or discharge. ENT: Denies rhinorrhea, congestion, sore throat, or otalgia. CARDIOVASCULAR: Denies chest pain, palpitations, or edema. RESPIRATORY: Denies cough or dyspnea. GASTROINTESTINAL: See HPI GENITOURINARY: Denies dysuria or hematuria. SKIN: Denies rash or itching. MUSCULOSKELETAL: Denies back pain, joint pain, or myalgia. NEUROLOGIC: Denies headache, numbness, or weakness. PSYCHIATRIC: Denies anxiety or depression. [facility] Past Medical History Medical History Menstrual periods, abnormal Sexually transmissible disease Encounter for IUD removal 03/13/21 Mirena removal Encounter for IUD insertion 11/14/20 Mirena insertion Nexplanon removal (06/26/20) Nexplanon insertion (03/12/20) Patient denies medical problems Family History Family History Other No pertinent family history Social History Social History Smoking status: Never smoker Tobacco type: e-cigarettes/vaping Alcohol intake: current Alcohol use details: occasional Substance use: never Do You Feel Safe in your Home?: Yes Lack of Transportation: No Lack of Food: Never True Current Housing: I Have Housing Concerned About Future Housing: No Difficulty Paying Gas/Electric Bills: No Difficulty Paying for Meds: No Currently Unemployed: No Education: Trade/Vocational Certificate Difficulty w/ Childcare or Family Care: No Living arrangements: with family Occupation/Education: occupation Additional occupation/education comments: [employer] Gender identity (if verbalized by the patient): Female Sexual Orientation (if Verbalized by the Patient): Straight or Heterosexual Spiritual care concerns: No Meds Home Medications and Allergies Home Medications ?Medication ?Instructions ?Recorded ?Confirmed ?Type vit no.95-ferrous 1 tablet PO DAILY 03/04/24 07/09/24 History fumarate 28 mg-folic acid 800 mcg tablet () Allergies Allergy/AdvReac Type Severity Reaction Status Date / Time No Known Allergies Allergy Verified 06/29/24 14:33 Vital Signs Vital Signs - 24 hr 07/09/24 16:28 07/09/24 17:00 07/09/24 17:51 Temperature 97.4 F L Pulse Rate 94 Respiratory Rate 16 Blood Pressure 147/88 H Pulse Oximetry Oxygen Delivery Room Air 07/09/24 18:00 07/09/24 18:01 07/09/24 18:16 Temperature 97.8 F Pulse Rate 89 94 Respiratory Rate Blood Pressure 151/88 H 132/82 Pulse Oximetry Oxygen Delivery 07/09/24 18:30 07/09/24 18:46 07/09/24 19:01 Temperature Pulse Rate 94 100 89 Respiratory Rate Blood Pressure 140/78 152/94 H 135/79 Pulse Oximetry Oxygen Delivery 07/09/24 19:16 07/09/24 19:31 07/09/24 19:45 Temperature Pulse Rate 90 84 90 Respiratory Rate Blood Pressure 118/59 L 124/69 124/71 Pulse Oximetry Oxygen Delivery 07/09/24 20:01 07/09/24 20:06 07/09/24 20:10 Temperature Pulse Rate 87 107 H Respiratory Rate Blood Pressure 80/61 L 152/78 H Pulse Oximetry 98 Oxygen Delivery 07/09/24 20:11 07/09/24 20:15 07/09/24 20:16 Temperature Pulse Rate 107 H 88 Respiratory Rate Blood Pressure 165/101 H 142/107 H Pulse Oximetry 99 99 Oxygen Delivery 07/09/24 20:18 07/09/24 20:19 07/09/24 20:21 Temperature Pulse Rate 95 97 Respiratory Rate Blood Pressure 138/105 H 137/72 Pulse Oximetry 98 Oxygen Delivery 07/09/24 20:23 07/09/24 20:24 07/09/24 20:26 Temperature Pulse Rate 114 H 93 Respiratory Rate Blood Pressure 139/89 134/82 Pulse Oximetry 98 Oxygen Delivery 07/09/24 20:28 07/09/24 20:29 07/09/24 20:30 Temperature Pulse Rate 133 H 115 H Respiratory Rate Blood Pressure 126/89 129/82 Pulse Oximetry 98 Oxygen Delivery 07/09/24 20:33 07/09/24 20:34 07/09/24 20:36 Temperature Pulse Rate 120 H 117 H Respiratory Rate Blood Pressure 109/51 L 105/44 L Pulse Oximetry 99 Oxygen Delivery 07/09/24 20:39 07/09/24 20:41 07/09/24 20:43 Temperature Pulse Rate 94 92 104 H Respiratory Rate Blood Pressure 106/54 L 118/49 L 112/48 L Pulse Oximetry 96 Oxygen Delivery 07/09/24 20:44 07/09/24 20:46 07/09/24 20:48 Temperature Pulse Rate 100 93 Respiratory Rate Blood Pressure 119/48 L 115/40 L Pulse Oximetry 98 Oxygen Delivery 07/09/24 20:49 07/09/24 20:51 07/09/24 20:53 Temperature Pulse Rate 90 97 Respiratory Rate Blood Pressure 115/39 L 119/52 L Pulse Oximetry 98 Oxygen Delivery 07/09/24 20:54 07/09/24 20:57 07/09/24 20:58 Temperature Pulse Rate 102 H 95 Respiratory Rate Blood Pressure 114/49 L 115/52 L Pulse Oximetry 98 Oxygen Delivery 07/09/24 20:59 07/09/24 21:01 07/09/24 21:03 Temperature Pulse Rate 95 89 Respiratory Rate Blood Pressure 116/49 L 113/49 L Pulse Oximetry 98 Oxygen Delivery 07/09/24 21:04 07/09/24 21:07 07/09/24 21:08 Temperature Pulse Rate 108 H Respiratory Rate Blood Pressure 109/71 Pulse Oximetry 98 99 Oxygen Delivery 07/09/24 21:11 07/09/24 21:16 07/09/24 21:21 Temperature Pulse Rate Respiratory Rate Blood Pressure Pulse Oximetry 97 98 97 Oxygen Delivery 07/09/24 21:31 07/09/24 21:32 07/09/24 22:01 Temperature Pulse Rate 97 82 Respiratory Rate Blood Pressure 94/31 L 149/92 H Pulse Oximetry 98 Oxygen Delivery 07/09/24 22:27 07/09/24 22:31 07/09/24 22:39 Temperature 97.1 F L Pulse Rate 97 Respiratory Rate Blood Pressure 130/69 Pulse Oximetry 100 99 Oxygen Delivery 07/09/24 22:53 07/09/24 22:54 07/09/24 22:59 Temperature Pulse Rate Respiratory Rate Blood Pressure Pulse Oximetry 93 97 99 Oxygen Delivery 07/09/24 23:01 07/09/24 23:04 07/09/24 23:06 Temperature Pulse Rate 77 Respiratory Rate Blood Pressure 114/78 Pulse Oximetry 98 98 Oxygen Delivery 07/09/24 23:07 07/09/24 23:12 07/09/24 23:15 Temperature Pulse Rate Respiratory Rate Blood Pressure Pulse Oximetry 99 99 98 Oxygen Delivery 07/09/24 23:17 07/09/24 23:20 07/09/24 23:21 Temperature Pulse Rate Respiratory Rate Blood Pressure Pulse Oximetry 99 99 100 Oxygen Delivery 07/09/24 23:22 07/09/24 23:30 07/09/24 23:32 Temperature Pulse Rate 73 Respiratory Rate Blood Pressure 137/91 H Pulse Oximetry 98 100 Oxygen Delivery 07/09/24 23:42 07/09/24 23:47 07/09/24 23:57 Temperature Pulse Rate Respiratory Rate Blood Pressure Pulse Oximetry 98 99 100 Oxygen Delivery 07/10/24 00:00 07/10/24 00:01 07/10/24 00:06 Temperature Pulse Rate 79 Respiratory Rate Blood Pressure 128/86 Pulse Oximetry 100 99 100 Oxygen Delivery 07/10/24 00:11 07/10/24 00:16 07/10/24 00:17 Temperature Pulse Rate Respiratory Rate Blood Pressure Pulse Oximetry 100 100 99 Oxygen Delivery 07/10/24 00:22 07/10/24 00:27 07/10/24 00:31 Temperature Pulse Rate 74 Respiratory Rate Blood Pressure 111/59 L Pulse Oximetry 100 100 Oxygen Delivery 07/10/24 00:32 07/10/24 00:37 07/10/24 00:42 Temperature Pulse Rate Respiratory Rate Blood Pressure Pulse Oximetry 99 99 98 Oxygen Delivery 07/10/24 00:47 07/10/24 00:52 07/10/24 00:57 Temperature Pulse Rate Respiratory Rate Blood Pressure Pulse Oximetry 99 100 100 Oxygen Delivery 07/10/24 01:00 07/10/24 01:01 07/10/24 01:04 Temperature Pulse Rate 84 Respiratory Rate Blood Pressure 109/96 H Pulse Oximetry 97 99 Oxygen Delivery 07/10/24 01:10 07/10/24 01:15 07/10/24 01:19 Temperature Pulse Rate Respiratory Rate Blood Pressure Pulse Oximetry 99 99 100 Oxygen Delivery 07/10/24 01:24 07/10/24 01:29 07/10/24 01:31 Temperature Pulse Rate 73 Respiratory Rate Blood Pressure 127/72 Pulse Oximetry 99 99 Oxygen Delivery 07/10/24 01:34 07/10/24 01:39 07/10/24 01:44 Temperature Pulse Rate Respiratory Rate Blood Pressure Pulse Oximetry 99 100 98 Oxygen Delivery 07/10/24 01:49 07/10/24 01:50 07/10/24 01:51 Temperature 97.8 F Pulse Rate Respiratory Rate Blood Pressure Pulse Oximetry 97 99 Oxygen Delivery 07/10/24 01:55 07/10/24 02:00 07/10/24 02:01 Temperature Pulse Rate 90 Respiratory Rate Blood Pressure 108/48 L Pulse Oximetry 99 100 Oxygen Delivery 07/10/24 02:02 07/10/24 02:05 07/10/24 02:10 Temperature Pulse Rate 75 Respiratory Rate Blood Pressure 115/72 Pulse Oximetry 100 100 Oxygen Delivery 07/10/24 02:15 07/10/24 02:20 07/10/24 02:25 Temperature Pulse Rate Respiratory Rate Blood Pressure Pulse Oximetry 100 100 99 Oxygen Delivery 07/10/24 02:30 07/10/24 02:31 07/10/24 02:35 Temperature Pulse Rate 91 Respiratory Rate Blood Pressure 114/64 Pulse Oximetry 97 100 Oxygen Delivery 07/10/24 02:40 07/10/24 02:45 07/10/24 02:50 Temperature Pulse Rate Respiratory Rate Blood Pressure Pulse Oximetry 100 100 100 Oxygen Delivery 07/10/24 02:55 07/10/24 03:00 07/10/24 03:05 Temperature Pulse Rate 79 Respiratory Rate Blood Pressure 124/84 Pulse Oximetry 99 99 99 Oxygen Delivery 07/10/24 03:10 07/10/24 03:15 07/10/24 03:20 Temperature Pulse Rate Respiratory Rate Blood Pressure Pulse Oximetry 100 100 99 Oxygen Delivery 07/10/24 03:25 07/10/24 03:30 07/10/24 03:31 Temperature Pulse Rate 92 Respiratory Rate Blood Pressure 110/67 Pulse Oximetry 99 100 Oxygen Delivery 07/10/24 03:35 07/10/24 03:40 07/10/24 03:45 Temperature Pulse Rate Respiratory Rate Blood Pressure Pulse Oximetry 99 98 100 Oxygen Delivery 07/10/24 03:50 07/10/24 03:55 07/10/24 04:00 Temperature Pulse Rate Respiratory Rate Blood Pressure Pulse Oximetry 99 100 100 Oxygen Delivery 07/10/24 04:01 07/10/24 04:05 07/10/24 04:10 Temperature Pulse Rate 96 Respiratory Rate Blood Pressure 126/44 L Pulse Oximetry 100 99 Oxygen Delivery 07/10/24 04:15 07/10/24 04:20 07/10/24 04:25 Temperature Pulse Rate Respiratory Rate Blood Pressure Pulse Oximetry 98 98 99 Oxygen Delivery 07/10/24 04:30 07/10/24 04:31 07/10/24 04:35 Temperature Pulse Rate 72 Respiratory Rate Blood Pressure 127/79 Pulse Oximetry 100 99 Oxygen Delivery 07/10/24 04:40 07/10/24 04:45 07/10/24 04:50 Temperature Pulse Rate Respiratory Rate Blood Pressure Pulse Oximetry 100 100 99 Oxygen Delivery Exam Const: General: cooperative, healthy appearing and comfortable Nutritional Appearance: average body habitus Orientation/consciousness: oriented to person, oriented to place and oriented to time HENMT: Head: normal to inspection Resp: Effort & Inspection: normal respiratory effort Cardio: Rate: regular rate Rhythm: regular rhythm Heart sounds: S1 normal heart sound present and S2 normal heart sound present GI: Inspection: normal to inspection ( gravid soft uterus) : External Female Exam: normal external appearance Speculum Exam - Vagina: normal appearance of the vagina Speculum Exam - Cervix: normal appearance of the cervix ( cervix 4/70/2. AROM clear.) H&P: Results Labs Labs: Short CBC 07/09/24 Range/Units 16:01 WBC 16.3 H (4.5-10.0) K/mm3 Hgb 10.7 L D (12.0-15.0) g/dL Hct 33.8 L (37.0-47.0) % Plt Count 283 (150-375) k/mm3 Assessment and Plan Assessment and plan (1) Term : Code(s): Z34.90 - Encounter for supervision of normal , unspecified, unspecified trimester Status: Acute Plan medical induction of labor. Spontaneous vaginal delivery expected. Epidural is in and working
--- NOTE | 2024-07-10 11:53 | PM.OBPNLAB ---
Pain Control Date/time seen: 07/10/24 11:53 Pain control: tolerating well and epidural Pelvic Exam Dilation (cm): 8 Effacement (%): 80 station: -1 Amniotic membrane status: Leaking
--- NOTE | 2024-07-10 16:20 | PM.OBPRVD ---
OB - Vaginal Delivery Note Procedure Delivery date: 07/10/24 Events: Elective Induction of Labor Induction method: AROM and Per Pitocin Protocol Delivery augmentation: Rupture of Membranes and Pitocin Delivery monitor: External FHT, External Uterine and Internal Uterine Route of delivery: other (Low forceps) Indication for instrumentation: maternal exhaustion Episiotomy description: None Laceration Description: None Specimen: No Quantitative Blood Loss (ml): 62 Anesthesia type: Epidural Disposition: Floor Complications: No immediate complications Narrative: patient was admitted for induction of labor on the evening of 07/09/2024 artificial rupture membranes performed early in the a.m. she progressed in unremarkable 1st stage of labor to completely dilated she pushed and due to maternal fatigue and maternal inability to push further the head was noted to be at +3 station and forceps were placed after the bladder was emptied delivered in the SHEMAR position. Anterior posterior shoulder delivered spontaneously. Cord clamped 2 and cut passed off the table given Apgars of 7 [id number] 9 [id number]. Cord blood was drawn. Placenta delivered intact spontaneously. 20units of Pitocin placed IV to help firm the uterus. After inspecting lateral sidewalls the vagina no tears were noted. The patient and baby doing fine at the time of dictation Baby Date of : 07/10/24 Time of : 16:13 Gestational Age by Date: 39 gender: Male presentation: vertex position: Right Occiput Anterior Placenta delivery description: Spontaneous Cord Vessel Description: 3 Vessels score one minute: 7 score five minutes: 9
--- NOTE | 2024-07-10 16:23 | PM.DS ---
DS: Admitting Diagnosis Discharge Date 07/12/24 <Lori Nobles MD - Last Filed: 07/12/24 11:05> Admitting Diagnosis term <Juanpablo Dunn MD - Last Filed: 07/10/24 16:25> DS: Discharge Diagnosis Discharge Diagnosis (1) Term : Code(s): Z34.90 - Encounter for supervision of normal , unspecified, unspecified trimester <Juanpablo Dunn MD - Last Filed: 07/10/24 16:25> Status: Acute <Juanpablo Dunn MD - Last Filed: 07/10/24 16:25> DS: Summary Hospital Course Reason for hospitalization: patient was admitted for induction of labor on the evening of 07/09/2024 and underwent spontaneous vaginal delivery in the afternoon of 07/10/2024. <Juanpablo Dunn MD - Last Filed: 07/10/24 16:25> Hospital Course: Patient's hospital course unremarkable. She remained afebrile. She was up, voiding without difficulty, eating regular diet, ambulating, and generally without complaints. <Juapnablo Dunn MD - Last Filed: 07/10/24 16:25> Patient's hospital course was remarkable for elevated BP's . PIH labs normal.No PIH symptoms. After 24 hours, BP's normalized. She remained afebrile. She was up, voiding without difficulty, eating regular diet, ambulating, and generally without complaints. <Lori Nobles MD - Last Filed: 07/12/24 11:05> Time Spent with Patient Time attestation: Total time spent providing and/or coordinating discharge services: <Juanpablo Dunn MD - Last Filed: 07/10/24 16:25> Exam Const: General: cooperative, healthy appearing and comfortable <Juanpablo Dunn MD - Last Filed: 07/10/24 16:25> Nutritional Appearance: average body habitus <Juanpablo Dunn MD - Last Filed: 07/10/24 16:25> Orientation/consciousness: oriented to person, oriented to place and oriented to time <Juanpablo Dunn MD - Last Filed: 07/10/24 16:25> HENMT: Head: normal to inspection <Juanpablo Dunn MD - Last Filed: 07/10/24 16:25> Resp: Effort & Inspection: normal respiratory effort <Juanpablo Dunn MD - Last Filed: 07/10/24 16:25> Cardio: Rate: regular rate <Juanpablo Dunn MD - Last Filed: 07/10/24 16:25> Rhythm: regular rhythm <Juanpablo Dunn MD - Last Filed: 07/10/24 16:25> Heart sounds: S1 normal heart sound present and S2 normal heart sound present <Juanpablo Dunn MD - Last Filed: 07/10/24 16:25> GI: Inspection: normal to inspection ( Fundus firm below umbilicus) <Juanpablo Dunn MD - Last Filed: 07/10/24 16:25> DS: Data Data Completed and Pending Labs on day of discharge: Labs from last 24 hours 07/09/24 16:01 WBC 16.3 H RBC 4.16 L Hgb 10.7 L D Hct 33.8 L MCV 81.3 MCH 25.7 L MCHC 31.7 L RDW 15.8 H Plt Count 283 MPV 10.1 Immature Gran % (Auto) 1.5 H Neut % (Auto) 74.7 H Lymph % (Auto) 17.2 L [place] % (Auto) 5.1 Eos % (Auto) 1.2 Baso % (Auto) 0.3 Lymph # (Auto) 2.80 [place] # (Auto) 0.8 H Eos # (Auto) 0.2 Baso # (Auto) 0.1 Abs Immat Gran (auto) 0.24 H Absolute Neuts (auto) 12.2 H Absolute Nucleated RBC 0.000 Nucleated RBC % 0.0 RPR Non-reactive HIV 1&2 Ab/P24 Ag 4thGn Negative Blood Type A Positive Antibody Screen Negative <Juanpablo Dunn MD - Last Filed: 07/10/24 16:25> Discharge Plan Discharge Attending physician on discharge: Juanpablo Vargas <Juanpablo Dunn MD - Last Filed: 07/10/24 16:25> Juanpablo Vargas <Lori Nobles MD - Last Filed: 07/12/24 11:05> Discharging Clinician: Lori Nobles <Juanpablo Dunn MD - Last Filed: 07/10/24 16:25> Lori Nobles <Lori Nobles MD - Last Filed: 07/12/24 11:05> Patient Disposition: Home, Self-Care <Juanpablo Dunn MD - Last Filed: 07/10/24 16:25> Activity: may shower, no straining and pelvic rest <Juanpablo Dunn MD - Last Filed: 07/10/24 16:25> may shower, no straining and pelvic rest <Lori Nobles MD - Last Filed: 07/12/24 11:05> Diet: heart healthy <Juanpablo Dunn MD - Last Filed: 07/10/24 16:25> heart healthy <Lori Nobles MD - Last Filed: 07/12/24 11:05> Wound Care Instructions: follow printed instructions <Juanpablo Dunn MD - Last Filed: 07/10/24 16:25> follow printed instructions <Lori Nobles MD - Last Filed: 07/12/24 11:05> Patient Instructions: Antibiotic Form <Juanpablo Dunn MD - Last Filed: 07/10/24 16:25> Patient Language: Bulgarian <Juanpablo Dunn MD - Last Filed: 07/10/24 16:25> Stand Alone Forms: General Discharge Information <Juanpablo Dunn MD - Last Filed: 07/10/24 16:25> Follow-up/Referrals: Juanpablo Vargas MD [Physician] - <Juanpablo Dunn MD - Last Filed: 07/10/24 16:25> Discharge Medications: Continued PNV cmb#95-ferrous fumarate-FA [] 28 mg iron- 800 mcg Tablet 1 tablet PO DAILY <Juanpablo Dunn MD - Last Filed: 07/10/24 16:25> Date of admission: 07/09/24 15:46 <Juanpablo Dunn MD - Last Filed: 07/10/24 16:25> Primary Care Provider: Diaz Arce <Juanpablo Dunn MD - Last Filed: 07/10/24 16:25> Admitting Provider: Juanpablo Vargas <Juanpablo Dunn MD - Last Filed: 07/10/24 16:25> Attending physician on admission: Juanpablo Vargas <Juanpablo Dunn MD - Last Filed: 07/10/24 16:25> Condition: Stable <Juanpablo Dunn MD - Last Filed: 07/10/24 16:25>
[2024-07-10] MEDS: OXYTOCIN 30 UNITS/NS 500 ML 30 UNITS/500 ML BAG 125 UNITS IV CONT (16:38)
[2024-07-10] MEDS: IBUPROFEN 600 MG TABLET PO (17:02)
[2024-07-10] MEDS: WITCH HAZEL 40 PADS 1 PAD TOPICAL (17:03)
[2024-07-10] MEDS: BENZOCAINE 20% AER SPR (*SP) 56 GM CAN 1 SPRAY TOPICAL (17:03)
--- NOTE | 2024-07-10 18:41 | OBPPTRN ---
Patient transferred to post room #292 via wheelchair. Support person- spouse present. Oriented to unit, room, information board, rooming in, admission packet and security measures. Patient verbalizes understanding.
[2024-07-10] MEDS: ACETAMINOPHEN 325 MG TABLET 650 MG PO (21:00)
--- NOTE | 2024-07-11 01:00 | PC.NURSE ---
Pump provided for PT. She states she has a pump at home but forgot to bring it. Education given on how to use pump and how often, as well as how to clean and safely store pumped breast milk. Encouraged PT to call out for any assistance or questions. PT verbalized understanding.
[2024-07-11 03:00] VITALS: BP 147/87; PULSE 93; RESP 18; TEMP 36.7; O2SAT 98
[2024-07-11] MEDS: IBUPROFEN 600 MG TABLET PO ×3 (03:09→19:10)
[2024-07-11 04:50] LABS: Hematocrit 32.7 % (37.0-47.0); Hemoglobin 10.1 g/dL (12.0-15.0)
[2024-07-11 07:30] VITALS: BP 130/83; PULSE 78; RESP 16; TEMP 36.6; O2SAT 100
--- NOTE | 2024-07-11 07:32 | P.PNOB_ITS ---
OB - PN: Subj Subjective Date/time seen: 07/11/24 07:32 Interval history: No PIH symptoms Patient comments: no complaints and pain well controlled [place] baby status: doing well OB - PN: Obj Data Labs 07/11/24 03:13 Labs: Laboratory Results - last 24 hr 07/11/24 03:13 Hgb 10.1 L Hct 32.7 L OB - PN A/P Plan day: 1 Comments: PIH labs. No symptoms Time Spent With Patient Time: Total time spent is greater than 50% in coordination of care (as documented) at patient's floor/unit and/or counseling patient: Exam 2 : Bimanual exam- vagina & uterus: other (Uterus firm, nt @U)
[2024-07-11] MEDS: MULTIVIT/MIN/PREN/FOL AC/IRON TABLET 1 TAB PO (07:34)
[2024-07-11 07:35] LABS: Mean Platelet Volume 10.6 fl (7.4-10.4); Platelet Count Result 269 k/mm3 (150-375)
[2024-07-11] MEDS: ACETAMINOPHEN 325 MG TABLET 650 MG PO (07:36)
[2024-07-11] MEDS: DOCUSATE SODIUM 100 MG CAPSULE PO (07:37)
--- NOTE | 2024-07-11 07:55 | WPDANLDPN2 ---
Anes-Prog Note L&D Date/Time: 07/11/24 07:55 Comfortable throughout: labor Neuraxial method: epidural Epidural/Spinal procedure site: clean & non-tender Neuro status: Neuro function grossly intact. Cardiovascular status: normal Respiratory status: normal Airway patency: baseline Mental status: baseline Post-Op hydration status: normal Vital Signs: Last Vital Signs Temp 36.7 C 07/11/24 03:00 Pulse 93 07/11/24 03:00 Resp 18 07/11/24 03:00 BP 147/87 H 07/11/24 03:00 Pulse Ox 98 07/11/24 03:00 O2 Del Method Room Air 07/09/24 16:28 Pain score (VAS): 3/10 I/O: Intake & Output 07/10/24 07/10/24 07/11/24 15:59 23:59 07:59 Intake Total 775 500 Balance 775 500 Post-procedural complaints: none Patient feedback: Patient satisfied with anesthetic care.
[2024-07-11 08:02] LABS: Alanine Aminotransferase 17 U/L (6-35); Albumin Level 2.7 g/dL (3.5-5.1); Alkaline Phosphatase 202 U/L (38-126); Anion Gap -1 mmol/L (4-12); Aspartate Amino Transferase 41 U/L (14-36); Bilirubin,Total 0.4 mg/dL (0.2-1.3); Blood Urea Nitrogen 8 mg/dL (7-17); Calcium 8.2 mg/dL (8.4-10.2); Carbon Dioxide 23 mmol/L (22-30); Chloride 113 mmol/L (98-107); Estimated CRCL calculation 110 ml/min; Estimated Glomerular Filt Rate > 60; Glucose 79 mg/dL (65-110); Potassium 3.8 mmol/L (3.4-5.0); Sodium 135 mmol/L (137-145); Uric Acid 4.3 mg/dL (2.5-7.5)
--- NOTE | 2024-07-11 09:25 | PC.NURSE ---
Introductions were made, then consulted with patient to assess needs related to . Discussed with mother her?plans to feed?her and the?experience so far. She states that infant isn't wanting to latch to the breast and that she has been bottle feeding. Mom isn't putting baby to breast at every feeding. Encouraged regular attempts and/or pumping if it is her desire to provide breastmilk to baby. She just pumped and got 5ml of breastmilk. Encouraged her to feed the breastmilk to baby first and then to top him off with formula as needed. Bottle nipple provided to mother and educated her on breastmilk use and storage. Advised that we have a breastmilk refrigerator for patient use. Resources provided for inpatient and outpatient services with the feeding sheet, mom/baby guide, admission packet, and name written on the communication board. Mother voiced understanding of information and will call if there is a request for assistance. Reported to the Primary RN.
[2024-07-11 11:25] VITALS: BP 108/72; PULSE 90; RESP 16; TEMP 36.3; O2SAT 99
[2024-07-11 16:10] VITALS: BP 137/68; PULSE 90
[2024-07-11 19:10] VITALS: BP 135/82; PULSE 75; RESP 18; TEMP 36.8; O2SAT 100
[2024-07-12] MEDS: IBUPROFEN 600 MG TABLET PO ×2 (01:05→08:21)
--- NOTE | 2024-07-12 02:30 | PC.NURSE ---
Pt requesting this RN to assist with . Pt has been bottle feeding entirety of this shift with little pumping. Attempted with infant at the breast for 10 minutes. Infant ravenous at breast and puts nipple in mouth but then doesn't suck. Pt decided she wants to try to pump and got 5 mL at this time. Pt is tearful and states she feels as if she is failing infant. Encouraged pt that is doing well and to pump Q2-3 hr with a 5 hr break at night time for rest to promote milk supply. pt states she wants to pump and bottle feed when going home but is afraid she won't make enough milk. Encouraged pt to continue pumping and feed what she gets from that and supplement with formula until infant is satisfied afterwards. pt verbalized understanding.
[2024-07-12 05:00] VITALS: BP 112/62; PULSE 72
[2024-07-12 07:25] VITALS: BP 127/83; PULSE 70; RESP 16; TEMP 36.3; O2SAT 100
[2024-07-12] MEDS: MULTIVIT/MIN/PREN/FOL AC/IRON TABLET 1 TAB PO (08:21)
[2024-07-12] MEDS: MEASLES,MUMPS,RUBELLA VACCINE 0.5 ML VIAL SUB-Q (08:23)
--- NOTE | 2024-07-12 08:50 | PC.NURSE ---
Consulted with mother concerning needs and she shared her her desire to provide breastmilk for her baby. He hasn't ever latched well or fed at the breast and she states that she is fine with pumping and providing her milk in a bottle to baby. He biggest concern is that she will not produce enough milk. Reinforced that it takes time for the milk to 'come in' and that with consistent pumping she should see an increase by day 4. If she doesn't start to see more production by day 4 she is encouraged to call the office for guidance on increasing her milk production. Mother is feeding appropriately for growth of . Infant has had appropriate feedings in the last 24 hours meets the outcomes for weight, output, blood sugar and jaundice at this time. Reinforced understanding of milk production, transition of milk, signs of adequate intake, transition of stool, prevention/relief of engorgement, plugged ducts, mastitis, community resources ([facility] referral fax[facility] to [facility]), and when to call a provider using the resource of the feeding sheet along with the mom and baby guide. Mother voiced understanding of the information shared, is confident to continue pumping and bottle feeding her infant at home, when to call for assistance, denies any additional assistance or education at this time. Reported to the Primary RN.
--- NOTE | 2024-07-12 11:01 | P.PNOB_ITS ---
OB - PN: Subj Subjective Date/time seen: 07/12/24 11:01 Interval history: No PIH symptoms Patient comments: no complaints and other (No PIH symptoms) baby status: other (moved to level 2 for rapid breathing) OB - PN: Obj Data Labs 07/11/24 03:13 07/11/24 07:38 OB - PN A/P Plan day: 2 Plan: routine care and discharge home Comments: BP's normalized over last 24 hours. Infant to Level 2 for rapid breathing so patient will move to no care bed. Time Spent With Patient Time: Total time spent is greater than 50% in coordination of care (as documented) at patient's floor/unit and/or counseling patient: Exam 2 : Bimanual exam- vagina & uterus: other (Uterus firm, nt @U)
[2024-07-12 12:15] VITALS: BP 139/76; PULSE 82; RESP 16; TEMP 36.6; O2SAT 100
--- NOTE | 2024-07-12 14:27 | PC.NURSE ---
Patient instructed on viewing the discharge video [facility], The First Two Weeks . Patient was given the opportunity and encouraged to ask questions. Patient verbalized understanding of information shared and has been given the mother/baby guide for home reference.
== END 2024-07-12 15:38 | disposition home or self-care (01) | DRG 560 ==
LOC: ANHNUR1 07-13 12:36 → ANHLDR 07-13 12:36 → ANHOB2 07-13 12:36
PROVIDERS: Admitting Provider Obstetrics & Gynecology; PCP Internal Medicine; Visit Provider Obstetrics & Gynecology Gynecology
DX: O75.81 Maternal exhaustion complicating labor and delivery (principal); Z37.0 Single live birth; Z3A.40 40 weeks gestation of pregnancy
CPT/HCPCS: 36415; 80053; 84550; 85014; 85018; 85025; 85049; 86592; 86703; 86850; 86900; 86901; 90710; A9270; G0432; J2405; J2590; J2795; J7120